=== PATIENT | male | born 1965 | race Caucasian/White ===

== ENCOUNTER 2016-12-20 05:20 | Emergency (ER) | payer BC ==
[2016-12-20] MEDS ORDERED: KETOROLAC TROMETHAMINE 30 MG/ML SOL IV ONE (05:34)
[2016-12-20] MEDS ORDERED: ONDANSETRON HCL 4 MG/2 ML SOL IV ONE (05:34)
[2016-12-20] MEDS ORDERED: SODIUM CHLORIDE 0.9% 500 ML 500 ML IV ONE (05:35)
[2016-12-20] MEDS ORDERED: SODIUM CHLORIDE 0.9% FLUSH 10 ML SOL IV PRN (05:35)
[2016-12-20] MEDS ORDERED: ONDANSETRON HCL 4 MG/2 ML SOL ONE (05:38)
[2016-12-20] MEDS ORDERED: KETOROLAC TROMETHAMINE 30 MG/ML SOL ONE (05:38)
[2016-12-20 05:45] LABS: BASOPHILS % (AUTO) 1 % (0-3); EOSINOPHILS % (AUTO) 2 % (0-9); HEMATOCRIT 40 % (39-53); MEAN CORPUSCULAR HGB CONC 35.6 gm/dl (32.0-36.0); MEAN CORPUSCULAR VOLUME 86 fL (80-100); MONOCYTES % (AUTO) 11.6 % (0-12); NEUTROPHILS % (AUTO) 56.5 % (37-80)
[2016-12-20 05:54] VITALS: TEMP 97.6
[2016-12-20 05:55] LABS: ALBUMIN 3.7 gm/dl (3.4-5.0); CALCIUM 8.6 mg/dl (8.5-10.1); POTASSIUM 3.9 mMol/L (3.5-5.1)
[2016-12-20 05:58] VITALS: O2SAT 99
[2016-12-20 07:05] VITALS: BP 123/89; PULSE 65; RESP 20
== END 2016-12-20 06:50 | disposition home or self-care (01) ==
LOC: ED 05:20
DX: R51 Headache (principal); R11.0 Nausea
CPT/HCPCS: 99285 ×3; 80053; 85025; J1885; J2405; 70450; 96365; 96374; 96375; 99284